=== PATIENT | female | born 1985 | race Caucasian/White ===

== ENCOUNTER 2019-04-18 09:13 | Outpatient (CLI) | payer OTHER ==
--- NOTE | 2019-04-18 09:37 | RAD ---
LEFT FOOT 3 VIEWS: HISTORY: Left foot pain FINDINGS: No fracture, dislocation or bony destruction is seen.
== END 2019-04-18 09:14 | disposition home or self-care (01) ==
LOC: BICRAD 09:13
PROVIDERS: ATTEND Family Medicine
DX: M79.672 Pain in left foot (principal)

== ENCOUNTER 2019-05-30 14:55 | Inpatient (IN) | payer OTHER ==
[2019-05-30 15:52] VITALS: BMI 44.8
[2019-05-30] MEDS: Lactated Ringer's 1,000 ML IV SCH ×2 (15:54→18:52)
[2019-05-30] MEDS ORDERED: Ondansetron PF 4 MG/2 ML Vial ONE ×2 (16:08→19:52)
[2019-05-30] MEDS ORDERED: PHENYLEPHRINE-NS 100 MCG/ML 10 ML SYRINGE ONE (16:08)
--- NOTE | 2019-05-30 16:08 | PDOC.LDHP ---
Labor and Delivery H&P Chief complaint: other (External version for breech presentation at 40w4d) HPI: Seen in office for routine visit today. Reactive NST for post-dates. SVE done and found to be breech, previously thought to be cephalic. SVE /-3. U/S done in office showed breech presentation, ROSELYN 10.3, head in maternal RUQ. Discussed options with pt and and they would like to attempt ECV followed by IOL if successful. We discussed that the likelihood of success is lower at this gestational age and we will proceed with primary C/S for breech if ECV fails. Current gestational age (weeks): 40 Due date: 05/26/19 Dating criteria: last menstrual period, first trimester ultrasound Grav: 2 Para: 1 Current complications: breech Abnormal US findings: No Current medications: pre- vitamins Previous surgical history: none Allergies/Adverse Reactions: Allergies Allergy/AdvReac Type Severity Reaction Status Date / Time Sulfa (Sulfonamide Allergy Intermediate Hives Verified 10/11/16 03:32 Antibiotics) Social history: none - Physical Exam Vital signs reviewed and normal: yes General: NAD Heart: RRR Lungs: CTAB Abdomen: gravid Extremeties: no edema FHT: category 1 - Vaginal Exam cm dilated: 4 Effacement: 75% Station: -2 - OB Labs Blood type: O RH: positive Antibody Screen: negative HIV: negative RPR: negative HEPSAg: negative 1 hour GCT: positive 3 hour GTT: All 3 values normal GBS: negative Urine drug screen: not done Rubella: immune (Breech presentation - attempt external cephalic version) - Plan Plan: admit to L&D (Terbutaline prior to ECV U/S to bedside Dr. Walters consulted earlier today If successful will proceed with IOL, if not then primary C/S FHT category I)
[2019-05-30] MEDS ORDERED: Promethazine HCl 25 MG/ML VIAL IM PRN ×2 (16:26→20:56)
[2019-05-30] MEDS ORDERED: Ondansetron PF 4 MG/2 ML Vial IVP PRN ×2 (16:26→20:56)
[2019-05-30] MEDS ORDERED: hydrALAZINE 20 MG/ML VIAL SLOW IVP PRN ×2 (16:26→22:10)
[2019-05-30] MEDS ORDERED: Mineral Oil ENEMA PR SCH (16:30)
[2019-05-30] MEDS ORDERED: Terbutaline Sulfate 1 MG/ML VIAL SC SCH (16:30)
[2019-05-30] MEDS ORDERED: Bicitra 30 ML UDCUP ONE (16:45)
[2019-05-30 16:47] LABS: Hemoglobin 13.4 g/dL (12.0-16.0); Mean Corpuscular Hemoglobin 29.9 pg (27.0-31.0); Mean Corpuscular Volume 90.4 fL (78.0-98.0); Mean Platelet Volume 10.2 fL (7.4-10.4); Platelet Count 184 thou/uL (130-400); RBC Distribution Width 12.7 % (11.5-14.5); Red Blood Cell (RBC) Count 4.49 mill/uL (4.20-5.40); White Blood Cell (WBC) Count 8.1 thou/uL (4.8-10.8)
[2019-05-30 17:28] LABS: Syphilis Antibody Nonreactive (Nonreactive); Syphilis Antibody Index 0.07 S/CO (<1.00 Non-Reactive)
[2019-05-30 17:29] LABS: HBSAg Index 0.24 S/CO (0-0.99); Hep B Surf Ag Non-Reactive S/CO (NonReactive)
--- NOTE | 2019-05-30 18:40 | PDOC.EVN ---
Event Note - Event Note Event Note: BLACK Ward Time: 1824 [facility] TRIAL Patinet of Dr Cha, here at 40 weeks+ with breech, comnfirmed by sono. CX about 3cm. BOWI. Patient accepts version trial. I discussed with her pros and cons to include failure and need for CS. After IC obtained, I attempted ECV x 3 attempts (2 backrolls, 1 forward) with no success. head at right upper maternal quadrant. IVFs in use and Terb SC given x 1 20-25 minutes prior. FHTS checked after each attempt with normal FHTS on sono. Nn VB, no LOF. As not successful at this EGA, we will proceed with primary CS for Breech.
[2019-05-30] MEDS ORDERED: CEFAZOLIN 2 GM in Premix Bag 1 BAG IVPB SCH (18:45)
[2019-05-30] MEDS ORDERED: Bicitra 30 ML UDCUP PO SCH (18:45)
[2019-05-30] MEDS ORDERED: Morphine 4 MG/ML VIAL ONE (18:56)
[2019-05-30] MEDS ORDERED: MORPHINE 5 MG/10 ML PF VIAL ONE (19:01)
[2019-05-30] MEDS ORDERED: Succinylcholine Chloride 20 MG/ML 10 ml SYRINGE FS ONE (19:02)
[2019-05-30] MEDS ORDERED: SUGAMMADEX SODIUM 500 MG/5 ML VIAL ONE (19:02)
[2019-05-30] MEDS ORDERED: PROPOFOL 0 ML ONE (19:02)
[2019-05-30] MEDS ORDERED: Lidocaine 2% PF Inj 2 ML VIAL ONE (19:03)
[2019-05-30] MEDS ORDERED: Rocuronium Bromide 10 MG/ML (10ML VIAL) ONE (19:04)
[2019-05-30] MEDS ORDERED: Phenylephrine HCL 10 MG/ML VIAL ONE (19:39)
[2019-05-30] MEDS ORDERED: Oxytocin 10 UNITS/ML VIAL ONE ×2 (19:41→20:21)
[2019-05-30] MEDS ORDERED: Fentanyl 100 MCG/2 ML VIAL ONE (20:12)
--- NOTE | 2019-05-30 20:29 | PDOC.EVN ---
Event Note - Event Note Event Note: OBGYN Note Asked to perform primary CS for Dr ding for Breech Preop DX: unsuccessful ECV, breech at 40 weeks Postop DX: same Procedure: Primary LTCS via pfannesnstiel, 2 layer uterine closure Surgeon: Camila Negrete Assist: Semaj Second Assist: Romeo KEATING Ancef 2 grama IV Findings: NC X i, vigourous male, Shalom breech Nornmal uterus EBL: 300 QBL pending Skin: subcutaneous tissue closed, and skin sutured Complications; none Path: none Disposition: To RR technique: Primary LTCS under pfannestiel in usual manner. Low transverse hysterotomy made without bladder flap Clear fluid at ROM Baby delivered breech without issue, NC x 1 delivered through Delayed cord clamp x 45-60 seconds Uterus closed in 2 layers Peritoneum closed Fascia closed with 2 sutures in usual manner Skin sutured
[2019-05-30] MEDS ORDERED: Ondansetron HCl/PF 4 MG/2 ML Vial IVP PRN (20:56)
[2019-05-30] MEDS ORDERED: Meperidine HCl/PF 25 MG/ML VIAL SLOW IVP PRN (20:56)
[2019-05-30] MEDS ORDERED: HYDROmorphone 2 MG/ML VIAL SLOW IVP PRN (20:56)
[2019-05-30] MEDS ORDERED: Naloxone HCl 0.4 mg/ml Vial IVP PRN ×2 (20:56)
[2019-05-30] MEDS ORDERED: Naloxone HCl 0.4 mg/ml Vial IV PRN (20:56)
[2019-05-30] MEDS ORDERED: L&D-Morphine 4 MG/ML VIAL SLOW IVP PRN (20:56)
[2019-05-30] MEDS ORDERED: Promethazine HCl 25 MG SUPP PR PRN (20:56)
[2019-05-30] MEDS ORDERED: diphenhydrAMINE 50 MG/ML VIAL IVP PRN (20:56)
[2019-05-30] MEDS ORDERED: Ketorolac Tromethamine 30 MG/ML VIAL IVP SCH (21:00)
[2019-05-30] MEDS ORDERED: Communication Order-Pharmacy FS SCH (21:00)
[2019-05-30] MEDS ORDERED: Ketorolac Tromethamine 30 MG/ML VIAL ONE (21:02)
[2019-05-30] MEDS: Ketorolac Tromethamine 30 MG/ML VIAL IVP PRN (21:12)
[2019-05-30] MEDS ORDERED: diphenhydrAMINE 25 MG CAP PO PRN (22:10)
[2019-05-30] MEDS ORDERED: Simethicone Chewable 80 MG TAB PO PRN (22:10)
[2019-05-30] MEDS ORDERED: Bisacodyl 10 MG SUPP PR PRN (22:10)
[2019-05-30] MEDS ORDERED: Docusate Calcium (SURFAK) 240 MG CAP PO SCH (22:30)
[2019-05-31] MEDS: Lactated Ringer's 1,000 ML IV SCH (02:15)
--- NOTE | 2019-05-31 03:17 | OP ---
DATE OF PROCEDURE: 05/30/2019 RESIDENT SURGEON: Olya Jones DO ATTENDING SURGEONS: Dr. Cha and Dr. Walters. PROCEDURE PERFORMED: Primary low-transverse section. PREOPERATIVE DIAGNOSES: 1. Term intrauterine . 2. Breech presentation. POSTOPERATIVE DIAGNOSES: 1. Term intrauterine , delivered. 2. Breech presentation. 3. Primary low-transverse section. ANESTHESIA: Spinal. INDICATIONS FOR PROCEDURE: This is a 33-year-old, G2, P1-0-0-1 at 40 and 4 weeks gestation who presented for an external version for breech presentation. The version was unsuccessful after 4 attempts and thus the patient was taken back to the operating room for a routine . PROCEDURE IN DETAIL: After risks, benefits, and alternatives were explained to the patient, she gave informed consent. Preoperative antibiotics included cefazolin 2 g IV. The patient was taken to the operating room and spinal anesthesia was initiated. She was placed in the supine position with a left tilt and prepped and draped in the usual sterile fashion. A Pfannenstiel incision was made with a scalpel and carried down to the level of the fascia, which was sharply nicked. The fascial cut was extended bilaterally with Reid scissors. The inferior and superior edges of the cut fascial edges were elevated with Cordell clamps and the underlying rectus muscles were sharply and bluntly dissected free. The recti were divided digitally and retracted manually. The peritoneum was entered bluntly and retracted manually. An Dedrick O was placed. A low transverse score was made with the scalpel and the uterus was entered in the midline with the scalpel. The hysterotomy was extended manually. The was noted to be in breech presentation back up. The 's hips and legs were delivered 1st and the remainder of the body followed with delivery of the head utilizing flexion. Mouth and nares were bulb suctioned. The cord was clamped and cut after delayed cord clamping. Grossly normal male infant was handed to awaiting nurse. Cord blood was obtained. Placenta was extracted and found to be intact with three-vessel cord and discarded. The uterus was closed with a running locking #1 monofilament suture followed by a running locking nonlocking #1 monofilament imbricating suture. Following this, hemostasis was noted. Abdomen was irrigated and suctioned free of clots. The Dedrick O was removed and the hysterotomy was examined again, and was noted to be hemostatic. The peritoneum was closed using 2-0 chromic. The fascia was then closed with a running nonlocking 0 PDS suture. The subcutaneous tissue was irrigated and bleeders were cauterized. The subcutaneous was brought together using 2-0 plain gut. The skin was approximated utilizing 4-0 monofilament. Dermabond was then placed and a pressure dressing was applied. All counts were correct. The patient tolerated the procedure well and was taken to the recovery room in stable condition. ESTIMATED BLOOD LOSS: 391 mL COMPLICATIONS: None. SPECIMENS: Cord blood sent to the lab for blood type. FINDINGS: Grossly normal male with Apgars of 8 and 9. Grossly normal placenta with three-vessel cord discarded. DRAINS: Slaughter to gravity, draining clear urine. Job ID: [id number] [facility]
[2019-05-31 06:26] LABS: Hemoglobin 11.6 g/dL (12.0-16.0); Mean Corpuscular HGB CONC 33.7 g/dL (32.0-36.0); Mean Corpuscular Hemoglobin 30.6 pg (27.0-31.0); Mean Corpuscular Volume 90.6 fL (78.0-98.0); Mean Platelet Volume 9.8 fL (7.4-10.4); Platelet Count 136 thou/uL (130-400); RBC Distribution Width 12.6 % (11.5-14.5); White Blood Cell (WBC) Count 9.1 thou/uL (4.8-10.8)
[2019-05-31] MEDS ORDERED: HYDROcodone/Acetaminophen 5/325 mg Tablet PO PRN ×2 (09:00)
[2019-05-31] MEDS: Docusate Calcium (SURFAK) 240 MG CAP PO SCH ×2 (09:12→23:24)
[2019-05-31] MEDS: Ketorolac Tromethamine 30 MG/ML VIAL IVP PRN ×2 (09:14→14:55)
--- NOTE | 2019-05-31 12:34 | PDOC.PP ---
Post Progress Note Post Day #: 1 Subjective: Doing well, about to get in the shower, no complaints, well. PO intake tolerated: yes Flatus: yes Ambulation: yes Vital Signs (12 hours) Temp Pulse Resp BP Pulse Ox 05/31/19 12:04 98.7 F 92 20 119/78 05/31/19 08:21 98.4 F 99 20 120/69 97 05/31/19 04:48 98.2 F 96 18 120/69 96 05/31/19 02:47 98.3 F 100 20 117/64 97 05/31/19 01:30 98.2 F 96 18 111/77 98 Weight Weight 286 lb - Physical Examination General: NAD Cardiovascular: no m/r/g, RRR Respiratory: clear to auscultation bilaterally, non-labored breathing Abdominal: + bowel sounds, lochia, no distention, appropriately TTP Extremities: negative homans (B) Skin: CS incision dry & intact Neurological: no gross focal deficits Psychiatric: A&Ox3 Result Diagrams: 05/31/19 06:04 Additional Labs: Post Labs Blood Type O POSITIVE 05/30/19 16:35 Hep Bs Antigen Non-Reactive S/CO (NonReactive) 05/30/19 16:35 (1) delivery delivered Code(s): O82 - ENCOUNTER FOR DELIVERY WITHOUT INDICATION Status: Acute (2) Breech presentation Code(s): O32.1XX0 - MATERNAL CARE FOR BREECH PRESENTATION, UNSP Status: Acute - Assessment/Plan Routine post-op care Doing well Continue D/C in 2 days
[2019-05-31] MEDS ORDERED: Sodium Chloride 0.9% 10 ML ONE (14:50)
[2019-06-01] MEDS: Ibuprofen 800 MG TAB PO SCH ×3 (07:17→21:47)
[2019-06-01] MEDS: Docusate Calcium (SURFAK) 240 MG CAP PO SCH ×2 (08:31→21:47)
--- NOTE | 2019-06-01 15:13 | PDOC.PP ---
Post Progress Note Post Day #: 2 Subjective: Routine post-op course. Pain controlled. going very well. PO intake tolerated: yes Flatus: yes Ambulation: yes Vital Signs (12 hours) Temp Pulse Resp BP Pulse Ox 06/01/19 11:22 98.4 F 91 20 132/72 06/01/19 07:59 97.7 F 89 20 125/75 97 Weight Weight 286 lb - Physical Examination General: NAD Cardiovascular: no m/r/g, RRR Respiratory: clear to auscultation bilaterally, non-labored breathing Abdominal: + bowel sounds, lochia, no distention, appropriately TTP Skin: CS incision dry & intact Neurological: no gross focal deficits Result Diagrams: 05/31/19 06:04 Additional Labs: Post Labs Blood Type O POSITIVE 05/30/19 16:35 Hep Bs Antigen Non-Reactive S/CO (NonReactive) 05/30/19 16:35 (1) delivery delivered Code(s): O82 - ENCOUNTER FOR DELIVERY WITHOUT INDICATION Status: Acute (2) Breech presentation Code(s): O32.1XX0 - MATERNAL CARE FOR BREECH PRESENTATION, UNSP Status: Acute - Assessment/Plan Routine post-op care D/C home tomorrow going well.
[2019-06-02] MEDS: Ibuprofen 800 MG TAB PO SCH (05:29)
[2019-06-02] MEDS: Docusate Calcium (SURFAK) 240 MG CAP PO SCH (07:49)
[2019-06-02 08:05] VITALS: BP 126/78; TEMP 98.2
--- NOTE | 2019-06-02 10:18 | PDOC.PP ---
Post Progress Note Post Day #: 3 Subjective: Doing well. well. PO intake tolerated: yes Flatus: yes Ambulation: yes Vital Signs (12 hours) Temp Pulse Resp BP Pulse Ox 06/02/19 07:07 98.2 F 96 18 126/78 97 Weight Weight 286 lb - Physical Examination General: NAD Cardiovascular: no m/r/g, RRR Respiratory: clear to auscultation bilaterally, non-labored breathing Abdominal: + bowel sounds, lochia, no distention, appropriately TTP Skin: CS incision dry & intact Psychiatric: A&Ox3 Result Diagrams: 05/31/19 06:04 Additional Labs: Post Labs Blood Type O POSITIVE 05/30/19 16:35 Hep Bs Antigen Non-Reactive S/CO (NonReactive) 05/30/19 16:35 (1) delivery delivered Code(s): O82 - ENCOUNTER FOR DELIVERY WITHOUT INDICATION Status: Acute (2) Breech presentation Code(s): O32.1XX0 - MATERNAL CARE FOR BREECH PRESENTATION, UNSP Status: Acute Qualifiers: Fetus number: single or unspecified fetus Qualified Code(s): O32.1XX0 - Maternal care for breech presentation, not applicable or unspecified - Assessment/Plan Routine post-op care D/C home
== END 2019-06-02 12:30 | disposition home or self-care (01) | DRG 788 ==
LOC: L&D 14:55 → 3SW 22:56
PROVIDERS: ADMIT Family Medicine; ATTEND Family Medicine
PROC: 10D00Z1 Extraction of Products of Conception, Low, Open Approach (ICD-10-PCS; principal; 2019-05-30)
DX: O32.1XX0 Maternal care for breech presentation, not applicable or unspecified (principal); O48.0 Post-term pregnancy; Z3A.40 40 weeks gestation of pregnancy; Z37.0 Single live birth
CPT/HCPCS: 36415; 51702; 59412; 76815; 85027; 86780; 86850; 86900; 86901; 87340; J0690; J1885; J2001; J2270; J2274; J2370; J2405; J2590; J2704; J3010; J3105